=== PATIENT | male | born 1965 | race Caucasian/White ===

== ENCOUNTER 2023-10-15 20:20 | Emergency (ER) | payer BC ==
[~2023-10-15] VITALS: Ht 175.3 cm; Wt 85.7 kg
[2023-10-15 22:31] LABS: BASOPHILS ABSOLUTE AUTO 0.04 K/mm3 (0.00-0.23); BASOPHILS PERCENT AUTO 0 % (0-2); EOSINOPHILS ABSOLUTE AUTO 0.01 K/mm3 (0.00-0.68); EOSINOPHILS PERCENT AUTO 0 % (0-6); Hematocrit 40.9 % (37.0-53.0); Hemoglobin 13.9 g/dL (13.5-17.5); IMMATURE GRAN ABSOLUTE AUTO 0.06 K/mm3 (0.00-0.10); IMMATURE GRAN PERCENT AUTO 0 % (0-1); LYMPHOCYTES PERCENT AUTO 5 % (21-46); MONOCYTES ABSOLUTE AUTO 0.88 K/mm3 (0.16-1.47); MONOCYTES PERCENT AUTO 5 % (4-13); Mean Corpuscular Volume 91 fL (80-100); Mean Platelet Volume 9.4 fL (9.1-12.4); NEUTROPHILS ABSOLUTE AUTO 15.34 K/mm3 (1.96-9.15); NEUTROPHILS PERCENT AUTO 90 % (41-73); Platelet Count 237 K/mm3 (150-400); RDW Coefficient Variation 12.3 % (11.7-14.2); RDW Standard Deviation 41.5 fL (35.1-46.3); Red Blood Cell Count 4.49 M/mm3 (4.30-5.90); White Blood Cell Count 17.13 K/mm3 (4.00-11.30)
[2023-10-15 22:54] LABS: Albumin, Blood 4.2 g/dL (3.4-5.0); Albumin/Globulin Ratio 1.5 (0.8-1.8); Bilirubin, Total 1.8 mg/dL (0.1-1.0); Bun/Creatinine Ratio 16.5 (12.0-20.0); Calcium, Blood 9.4 mg/dL (8.5-10.1); Creatinine, Blood 1.82 mg/dL (0.60-1.20); Globulin, Blood 2.8 g/dL (2.2-4.0); Potassium, Blood 4.4 mmol/L (3.5-5.5)
[2023-10-15 23:02] LABS: Source, Urine Clean Catch
[2023-10-15 23:08] LABS: Appearance, Urine Clear (Clear); Bilirubin, Urine Neg (Neg); Blood, Urine 2+ (Neg); Color, Urine Yellow (P-Yellow); Glucose Qualitative, Urine Neg (Neg); Ketones, Urine 3+ (Neg); Leukocyte Esterase, Urine Neg (Neg); Nitrite, Urine Neg (Neg); Protein, Urine 1+ (Neg); Specific Gravity, Urine 1.025 (1.003-1.022); Urobilinogen, Urine NORM (Normal)
[2023-10-15 23:21] LABS: Bacteria Few /hpf; Red Blood Cells, Urine 0-2 /hpf (0-2); Squamous Epithelial Cells Few /hpf (Few); White Blood Cells, Urine 0-2 /hpf (0-5)
[2023-10-15] MEDS ORDERED: HYDROcodone 5-APAP 325 TAB PO ONE (23:35)
[2023-10-15] MEDS ORDERED: Acetaminophen 325 MG TABLET PO ONE (23:35)
[2023-10-16] MEDS ORDERED: Percocet 5-3251 EACH PO (01:10)
[2023-10-16] MEDS ORDERED: ONDA4ODT MM (01:10)
[2023-10-16] MEDS ORDERED: TAMS.4ER PO (01:10)
[2023-10-16] MEDS ORDERED: RX Prepack 2 Tabs Ondansetron ODT 4MG UD ONE (01:15)
[2023-10-16] MEDS ORDERED: Tamsulosin HCl 0.4 MG Cap PO ONE (01:15)
[2023-10-16] MEDS ORDERED: RX Prepack 6 Tabs Oxycodone 5mg UD ONE (01:15)
== END 2023-10-16 03:00 | disposition home or self-care (01) ==
LOC: ER 20:20
PROVIDERS: Physician Assistant
DX: N13.2 Hydronephrosis with renal and ureteral calculous obstruction (principal); N17.9 Acute kidney failure, unspecified; I10 Essential (primary) hypertension; E78.00 Pure hypercholesterolemia, unspecified
CPT/HCPCS: 74176; 80053; 81001; 85025; 99284-25; A9270